=== PATIENT | male | born 2000 | race African-American/Black ===

== ENCOUNTER 2022-07-24 12:09 | Inpatient (IN) | payer MEDICAID ==
[~2022-07-24] VITALS: Ht 190.5 cm; Wt 88.1 kg
[2022-07-24] MEDS ORDERED: HALOPERIDOL 5 MG TABLET PO PRN (12:30)
[2022-07-24] MEDS ORDERED: ZOLPIDEM TARTRATE 10 MG TABLET PO PRN (12:30)
[2022-07-24 13:15] VITALS: BP 120/66
[2022-07-24] MEDS ORDERED: INFLUENZA VIRUS VACCINE QVS 2022-23 (6MO+)/PF 60 MCG/0.5 ML SYRINGE IM. ONE (14:00)
[2022-07-24 20:22] VITALS: BP 111/64
[2022-07-25] MEDS ORDERED: CloNIDine HCL 0.1 MG TABLET PO PRN (06:15)
[2022-07-25] MEDS ORDERED: OMEPRAZOLE 20 MG CAPSULE PO PRN (06:15)
[2022-07-25] MEDS ORDERED: MAG HYDROX/AL HYDROX/SIMETH ES 30 ML SUSPENSION UDCUP PO PRN (06:15)
[2022-07-25] MEDS ORDERED: PETROLATUM,WHITE 28 GM JELLY TP PRN (06:15)
[2022-07-25] MEDS ORDERED: ACETAMINOPHEN 325 MG TABLET PO PRN (06:15)
[2022-07-25] MEDS ORDERED: BENZOCAINE/MENTHOL LOZENGE PO PRN (06:15)
[2022-07-25] MEDS ORDERED: MAGNESIUM HYDROXIDE SUSPENSION 30 ML UDCUP PO PRN (06:15)
[2022-07-25] MEDS ORDERED: IBUPROFEN 600 MG TABLET PO PRN (06:15)
[2022-07-25] MEDS ORDERED: DOCUSATE SODIUM 100 MG CAPSULE PO PRN (06:15)
[2022-07-25] MEDS ORDERED: LOPERAMIDE HCL 2 MG CAPSULE PO PRN (06:15)
[2022-07-25] MEDS ORDERED: BACITRACIN 28 GM OINTMENT TP PRN (06:15)
[2022-07-25] MEDS ORDERED: ONDANSETRON HCL 4 MG TABLET PO PRN (06:15)
[2022-07-25] MEDS ORDERED: ALBUTEROL SULFATE HFA 90 MCG/PUFF 8 GM INHALER IH PRN (06:15)
[2022-07-25 07:39] LABS: BASOPHILS % (AUTO) 0.3 % (0.0-2.0); EOSINOPHILS % (AUTO) 1.6 % (1.0-6.0); HEMATOCRIT 40.3 % (41-53); HEMOGLOBIN 13.6 g/dL (13.5-17.5); LYMPHOCYTES # (AUTO) 2.5 K/uL (1.0-4.8); LYMPHOCYTES % (AUTO) 39.4 % (22.0-44.0); MEAN CORPUSCULAR HEMOGLOBIN 30.3 pg (26.0-34.0); MEAN CORPUSCULAR HGB CONC 33.8 G/dL (31.0-37.0); MEAN CORPUSCULAR VOLUME 90 fL (80-100); MONOCYTES # (AUTO) 0.3 K/uL (0.1-1.0); MONOCYTES % (AUTO) 5.6 % (2.0-9.0); NEUTROPHILS # (AUTO) 3.3 K/uL (1.8-7.7); NEUTROPHILS % (AUTO) 53.1 % (40.0-70.0); PLATELET COUNT (AUTO) 174 K/uL (150-450); RED CELL DISTRIBUTION WIDTH 12.6 % (11.5-14.5)
[2022-07-25 08:03] VITALS: BP 118/64
[2022-07-25 08:04] LABS: ALANINE AMINOTRANSFERASE 12 U/L (12-78); ALBUMIN 3.6 g/dL (3.4-5.0); ALKALINE PHOSPHATASE 46 U/L (46-116); ANION GAP 7 mmol/L (8-16); ASPARTATE AMINOTRANSFERASE 10 U/L (15-37); BILIRUBIN,TOTAL 0.6 mg/dL (0.1-1.0); CALCIUM, TOTAL 8.9 mg/dL (8.8-10.5); CARBON DIOXIDE 30 mmol/L (22-29); CHLORIDE 107 mmol/L (98-107); CHOL/HDL RATIO 2.4 (4.2-7.3); CHOLESTEROL 121 mg/dL (131-200); CREATININE 0.89 mg/dL (0.60-1.30); GLOMERULAR FILTR. RATE CALC > 60 mL/min (>60); GLUCOSE,RANDOM 85 mg/dL (70-110); HDL CHOLESTEROL 50 mg/dL (40-60); LDL CHOL (CALC.) 62 mg/dL (0-130); POTASSIUM 3.9 mmol/L (3.5-5.1); SODIUM SERUM 144 mmol/L (136-145); THYROID STIMULATING HORMONE 0.95 uIU/mL (0.36-3.74); TOTAL PROTEIN, SERUM 6.4 g/dL (6.4-8.2); TRIGLYCERIDES 47 mg/dL (15-150); UREA NITROGEN, BLOOD 7 mg/dL (7-18)
[2022-07-25 08:09] LABS: AMPHET/METH SCREEN,URINE NEGATIVE (NEGATIVE); BARBITURATE SCREEN, URINE NEGATIVE (NEGATIVE); BENZODIAZEPINES SCREEN,URINE NEGATIVE (NEGATIVE); CANNABINOID SCREEN,URINE NEGATIVE (NEGATIVE); COCAINE SCREEN,URINE NEGATIVE (NEGATIVE); METHADONE SCREEN, URINE NEGATIVE (NEGATIVE); OPIATE SCREEN,URINE NEGATIVE (NEGATIVE)
[2022-07-25 08:19] LABS: PHENCYCLIDINE SCREEN,URINE NEGATIVE (NEGATIVE)
[2022-07-25] MEDS: LORazepam 2 MG TABLET PO PRN (10:55)
[2022-07-25] MEDS: ESCITALOPRAM OXALATE 10 MG TABLET PO SCH (12:53)
[2022-07-25 20:09] VITALS: BP 115/66
[2022-07-25] MEDS: OLANZapine 10 MG TABLET PO SCH (20:15)
[2022-07-26 08:11] LABS: GLUCOMETER DEV NAME(LOC) POC.BV
[2022-07-26] MEDS: ESCITALOPRAM OXALATE 10 MG TABLET PO SCH (08:23)
[2022-07-26 08:36] VITALS: BP 118/74
[2022-07-26] MEDS: LORazepam 2 MG TABLET PO PRN (11:04)
[2022-07-26] MEDS: OLANZapine 10 MG TABLET PO SCH (20:08)
[2022-07-26 20:09] VITALS: BP 107/59
[2022-07-27 08:07] VITALS: BP 136/77
[2022-07-27] MEDS: ESCITALOPRAM OXALATE 10 MG TABLET PO SCH (09:13)
[2022-07-27] MEDS: LORazepam 2 MG TABLET PO PRN (10:18)
[2022-07-27] MEDS ORDERED: OLAN10 PO (11:56)
[2022-07-27] MEDS ORDERED: ESCI10 PO (11:56)
== END 2022-07-27 14:30 | disposition home or self-care (01) | DRG 750 ==
LOC: B2S 12:22
PROVIDERS: ADMIT Psychiatry & Neurology Psychiatry; ATTEND Psychiatry & Neurology Psychiatry
DX: F25.1 Schizoaffective disorder, depressive type (principal); R45.851 Suicidal ideations; F15.10 Other stimulant abuse, uncomplicated; F32.A Depression, unspecified; G47.00 Insomnia, unspecified; K59.00 Constipation, unspecified; Z20.822 Contact with and (suspected) exposure to COVID-19; F17.210 Nicotine dependence, cigarettes, uncomplicated; Z79.899 Other long term (current) drug therapy; Z91.51 Personal history of suicidal behavior
CPT/HCPCS: 80053; 80061; 80307; 83036; 84439; 84443; 85025